=== PATIENT | female | born 1995 | race Caucasian/White ===

== ENCOUNTER 2022-11-19 08:19 | Emergency (ER) | payer SELFPAY ==
--- NOTE | 2022-11-19 08:20 | ED.URI ---
HPI - URI/Sore Throat General Chief Complaint: Unspecified Stated Complaint: Fever/Headache Time Seen by Provider: 11/19/22 08:20 Source: patient Mode of arrival: ambulatory Limitations: no limitations History of Present Illness HPI Narrative: Sangita is a 27-year-old female patient presenting to clinic today with complaints of fever, burning with urination, chills, headache, and nasal congestion x 2 days. She reports no sore throat. Denies any known exposure to anybody with COVID, flu, or strep. States that she did not check her temperature however she felt feverish. She rates her headache at currently a 4-5. She does have a history of migraine headaches in the past. MD elicited complaint: fever and nasal congestion Related Data Allergies Allergy/AdvReac Type Severity Reaction Status Date / Time amoxicillin Allergy Unknown Hives Verified 11/19/22 08:30 Review of Systems Review of Systems: Pertinent positives per HPI. Patient denies any rash, visual changes, dizziness, cough, shortness of breath, chest pain, palpitations, nausea, vomiting, diarrhea, constipation, abdominal pain, or any urinary issues. PMFSH Past Medical History Medical History Allergies Anxiety Asthma IBS (irritable bowel syndrome) Migraines Surgical History Surgical History Hx of tonsillectomy 2001 [place] teeth removed 2014 Family History Family History Father Hypertension Family history of elevated blood lipids Grandparent Hypertension Cerebrovascular accident Family history of coronary artery disease Diabetes mellitus Other Carcinoma of colon Social History Social History Smoking status: Current every day smoker (vapes) Second hand tobacco smoke exposure: No Alcohol intake: never Comments At the time of my signature, I reviewed and agree with the nursing past medical, surgical, social, and family history. There is no relevant family history pertinent to the patient complaint. Exam Narrative: General: Well-developed, well nourished, in no apparent distress Head: Normocephalic, atraumatic Eyes: Pupils equally round and reactive to light bilaterally, EOM intact, sclera and conjunctive clear, no discharge, lids normal Ears: TMs intact and clear, ear canals clear, no drainage, grossly hearing normal. Nose: Nares patent, clear nasal discharge, no inflammation, no sinus tenderness. Mouth: Oral pharynx without lesions or masses, good dentition, MMM. Neck: Supple, trachea midline, no enlargement of anterior or posterior cervical nodes, no thyroid masses or goiter palpable. Cardio: Regular rate and rhythm, s1 and s2 normal, no murmur appreciated. Resp: Clear to auscultation bilaterally, no rhonchi, rales, wheezing or rubs Course Course Emergency Course: Portions of this record may have been created with voice recognition software. Level of Care: Express Care Visit Vital Signs Vital signs: Vital Signs Temperature 36.4 C L 11/19/22 08:34 Pulse Rate 86 11/19/22 08:34 Respiratory Rate 16 11/19/22 08:34 Blood Pressure 107/68 11/19/22 08:34 Pulse Oximetry 100 11/19/22 08:34 Oxygen Delivery Room Air 11/19/22 08:34 Temperature 36.4 C L 11/19/22 08:34 Pulse Rate 86 11/19/22 08:34 Respiratory Rate 16 11/19/22 08:34 Blood Pressure 107/68 11/19/22 08:34 Pulse Oximetry 100 11/19/22 08:34 Oxygen Delivery Room Air 11/19/22 08:34 Vital signs reviewed MDM - URI/Sore Throat MDM Narrative Medical decision making narrative: At the time of visit patient is resting comfortably on the exam table. I suspect she has URI/viral syndrome/ dysuria/headache. COVID and influenza testing were negative in the clinic today. Urinalysis appears that s
[2022-11-19 08:34] VITALS: BP 107/68; PULSE 86; RESP 16; TEMP 36.4; O2SAT 100
== END 2022-11-19 09:10 | disposition home or self-care (01) ==
PROVIDERS: Emergency Provider Nurse Practitioner Family
DX: R51.9 Headache, unspecified (principal); R30.0 Dysuria; B34.9 Viral infection, unspecified; J06.9 Acute upper respiratory infection, unspecified; Z20.822 Contact with and (suspected) exposure to COVID-19; F17.290 Nicotine dependence, other tobacco product, uncomplicated; J45.909 Unspecified asthma, uncomplicated
CPT/HCPCS: 81003; 87086; 87426; 87804; 99213; C9803; G0463